=== PATIENT | female | born 1965 | race American Indian/Alaskan Native ===

== ENCOUNTER 2021-08-15 18:32 | Emergency (ER) | payer MEDICAID ==
[~2021-08-15] VITALS: Ht 160 cm; Wt 102.7 kg
[2021-08-15] MEDS ORDERED: BUPRENORPHINE HC8 MG SL (18:52)
[2021-08-15] MEDS ORDERED: FLUOXETINE HCL20 MG PO (18:52)
[2021-08-15] MEDS ORDERED: PRILOSEC OTC20 MG PO (18:52)
--- OUTSIDE RECORDS SUMMARY | 2021-08-15 20:38 | XMS ---
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 [facility] has no Care Guidelines for this patient. [facility] VISIT COUNT (12 MO.) 1 [facility] Roldan TOTAL 1 NOTE: Visits indicate total known visits. ED/UCC VISIT TRACKING (12 MO.) 08/15/2021 18:34 [facility] [place] TYPE: Emergency COMPLAINT: - LT LEG SWELLING/ NO INJ INPATIENT VISIT TRACKING (12 MO.) No inpatient visits to display in this time frame [id number]
[2021-08-15] MEDS ORDERED: DOXYCYCLINE HY100 MG PO (21:09)
== END 2021-08-15 21:24 | disposition home or self-care (01) ==
LOC: ED 18:32
DX: L03.116 Cellulitis of left lower limb (principal); R31.9 Hematuria, unspecified; J45.909 Unspecified asthma, uncomplicated; Z88.6 Allergy status to analgesic agent; Z79.899 Other long term (current) drug therapy
CPT/HCPCS: 36415; 80053; 81001; 85025; 93971; 99284-25; A9270

== ENCOUNTER 2021-12-05 17:54 | Emergency (ER) | payer MEDICAID ==
[~2021-12-05] VITALS: Ht 160 cm; Wt 102.5 kg
[~2021-12-05 17:54] MED LIST: BUPRENORPHINE HC8 MG SL; DOXYCYCLINE HY100 MG PO; FLUOXETINE HCL20 MG PO; PRILOSEC OTC20 MG PO
--- OUTSIDE RECORDS SUMMARY | 2021-12-05 17:56 | XMS ---
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
[2021-12-05] MEDS ORDERED: BACTRIM DS TAB1 EACH PO (19:50)
== END 2021-12-05 20:11 | disposition home or self-care (01) ==
LOC: ED 17:54
DX: L03.115 Cellulitis of right lower limb (principal); L03.116 Cellulitis of left lower limb; Z88.6 Allergy status to analgesic agent; Z79.899 Other long term (current) drug therapy
CPT/HCPCS: 36415; 83880; 93970; 99284-25; A9270

== ENCOUNTER 2022-05-31 19:01 | Emergency (ER) | payer MEDICAID ==
[~2022-05-31] VITALS: Ht 160 cm; Wt 86.2 kg
[~2022-05-31 19:01] MED LIST changes: +BACTRIM DS TAB1 EACH PO
--- OUTSIDE RECORDS SUMMARY | 2022-05-31 19:04 | XMS ---
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 TOTAL 3 NOTE: Visits indicate total known visits. 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
== END 2022-05-31 20:08 | disposition home or self-care (01) ==
LOC: ED 19:01
DX: I83.892 Varicose veins of left lower extremity with other complications (principal); F19.11 Other psychoactive substance abuse, in remission; F32.A Depression, unspecified
CPT/HCPCS: 99283